=== PATIENT | female | born 1955 | race Two or more races ===

== ENCOUNTER 2018-10-23 10:09 | Day surgery (SDC) | payer OTHER ==
[2018-10-20 16:27] VITALS: BMI 21.0
[2018-10-23 13:54] VITALS: BP 118/65; PULSE 68; TEMP 98
--- NOTE | 2018-10-26 14:48 | PATH ---
Surgical Pathology Report Patient Name: SALOMON MAGALLANES [facility] Rec. #: [id number] /Age/Gender: 1955 (Age: 63) / F Account: [id number] Location: [facility] Taken: 10/23/2018 Received: 10/23/2018 Reported: 10/26/2018 Physicians: Regis Brantley M.D. Specimen(s) Received A: SECOND PORTION DUODENUM B: ANTRUM C: TERMINAL ILEUM D: CECUM E: RIGHT COLON F: RECTUM Clinical History Weight loss, screening Postoperative diagnosis: Gastritis, colitis, ileitis Final Diagnosis A. SECOND PORTION DUODENUM, BIOPSY: DUODENAL MUCOSA WITH NO PATHOLOGIC FINDINGS. B. GASTRIC ANTRUM, BIOPSY: MODERATE CHRONIC ACTIVE GASTRITIS WITH FOCAL INTESTINAL METAPLASIA. IMMUNOSTAIN SHOWS NUMEROUS H PYLORI ORGANISMS. C. TERMINAL ILEUM, BIOPSY: MODERATE CHRONIC ACTIVE ILEITIS WITH PROMINENT REACTIVE LYMPHOID AGGREGATE. NEGATIVE FOR DYSPLASIA. (SEE NOTE) D. CECUM, BIOPSY: MODERATE CHRONIC ACTIVE COLITIS. NEGATIVE FOR DYSPLASIA. (SEE NOTE) E. RIGHT COLON, BIOPSY: MODERATE CHRONIC ACTIVE COLITIS. NEGATIVE FOR DYSPLASIA. (SEE NOTE) F. RECTUM, BIOPSY: FOCAL ACTIVE PROCTITIS. NEGATIVE FOR DYSPLASIA. (SEE NOTE). Note: These findings are compatible with inflammatory bowel disease; correlation with clinical findings is suggested. Electronically Signed Evelyn Hale M.D. Gross Description A. Received in formalin, labeled "biopsy second portion of duodenum" are 2 eli, irregular portions of soft tissue averaging 0.4 cm. in greatest dimension. The specimens are submitted in toto in one cassette. B. Received in formalin, labeled "biopsy gastric antrum" are 2 eli, irregular portions of soft tissue measuring 0.4 and 0.5 cm. in greatest dimension. The specimens are submitted in toto in one cassette. C. Received in formalin, labeled "biopsy terminal ileum" is a eli, irregular portion of soft tissue measuring 0.4 cm. in greatest dimension. The specimen is submitted in toto in one cassette. D. Received in formalin, labeled "biopsy cecum" are 5 eli, irregular portions of soft tissue ranging from 0.1-0.3 cm. in greatest dimension. The specimens are submitted in toto in one cassette. E. Received in formalin, labeled "biopsy right colon" are 4 eli, irregular portions of soft tissue ranging from 0.2-0.3 cm. in greatest dimension. The specimens are submitted in toto in one cassette. F. Received in formalin, labeled "biopsy rectum" are 2 eli, irregular portions of soft tissue averaging 0.3 cm. in greatest dimension. The specimens are submitted in toto in one cassette. [facility]
== END 2018-10-23 13:45 | disposition home or self-care (01) ==
LOC: FASU-ENDO 10:09
PROVIDERS: ATTEND Internal Medicine Gastroenterology
PROC: 0DBP8ZX Excision of Rectum, Via Natural or Artificial Opening Endoscopic, Diagnostic (ICD-10-PCS; 2018-10-23)
PROC: 0DBB8ZX Excision of Ileum, Via Natural or Artificial Opening Endoscopic, Diagnostic (ICD-10-PCS; 2018-10-23)
PROC: 0DB98ZX Excision of Duodenum, Via Natural or Artificial Opening Endoscopic, Diagnostic (ICD-10-PCS; 2018-10-23)
PROC: 0DB68ZX Excision of Stomach, Via Natural or Artificial Opening Endoscopic, Diagnostic (ICD-10-PCS; 2018-10-23)
PROC: 0DBK8ZX Excision of Ascending Colon, Via Natural or Artificial Opening Endoscopic, Diagnostic (ICD-10-PCS; principal; 2018-10-23 12:33)
DX: K29.50 Unspecified chronic gastritis without bleeding (principal); B96.81 Helicobacter pylori [H. pylori] as the cause of diseases classified elsewhere; K52.89 Other specified noninfective gastroenteritis and colitis; R63.4 Abnormal weight loss
CPT/HCPCS: 88305-TC; 88342-TC